=== PATIENT | female | born 1985 | race Two or more races ===

== ENCOUNTER 2021-08-29 13:42 | Emergency (ER) | payer OTHER ==
[~2021-08-29] VITALS: Ht 154.9 cm; Wt 73.5 kg
[2021-08-29] MEDS ORDERED: ZESTRIL5 MG PO (13:50)
[2021-08-29] MEDS ORDERED: IRON325 MG PO (13:51)
[2021-08-29] MEDS ORDERED: DICLOFENAC SODI75 MG PO (16:56)
== END 2021-08-29 16:59 | disposition home or self-care (01) ==
LOC: ER 13:42
DX: M25.572 Pain in left ankle and joints of left foot (principal); I10 Essential (primary) hypertension

== ENCOUNTER 2021-12-24 19:16 | Emergency (ER) | payer OTHER ==
[~2021-12-24] VITALS: Ht 154.9 cm; Wt 72.6 kg
[~2021-12-24 19:16] MED LIST: DICLOFENAC SODI75 MG PO; IRON325 MG PO; ZESTRIL5 MG PO
[2021-12-24] MEDS ORDERED: ORPHENADRINE C100 MG PO (23:57)
== END 2021-12-25 00:38 | disposition home or self-care (01) ==
LOC: ER
DX: R07.1 Chest pain on breathing (principal); R10.13 Epigastric pain; I10 Essential (primary) hypertension

== ENCOUNTER 2022-02-19 15:33 | Emergency (ER) | payer OTHER ==
[~2022-02-19] VITALS: Ht 154.9 cm; Wt 72.6 kg
[~2022-02-19 15:33] MED LIST changes: +ACETAMINOPHEN650 M2 PO; +AZITHROMYCIN500 MG PO; +MEDROLPACK PO; +MUCINEX DM ER1 EACH PO; +ORPHENADRINE C100 MG PO; +ZYRTEC10 M3 PO
== END 2022-02-19 22:47 | disposition home or self-care (01) ==
LOC: ER 15:33
DX: J10.1 Influenza due to other identified influenza virus with other respiratory manifestations (principal); Z20.822 Contact with and (suspected) exposure to COVID-19

== ENCOUNTER 2022-05-27 18:22 | Emergency (ER) | payer OTHER ==
[~2022-05-27] VITALS: Ht 160 cm; Wt 72.6 kg
== END 2022-05-27 20:59 | disposition home or self-care (01) ==
LOC: ER 18:22
DX: R05.8 Other specified cough (principal); R50.9 Fever, unspecified; R53.81 Other malaise

== ENCOUNTER 2022-11-17 16:42 | Emergency (ER) | payer OTHER ==
[~2022-11-17] VITALS: Ht 157.5 cm; Wt 72.6 kg
== END 2022-11-17 21:24 | disposition home or self-care (01) ==
LOC: ER 16:42
PROVIDERS: General Practice
DX: J06.9 Acute upper respiratory infection, unspecified (principal); I10 Essential (primary) hypertension; D64.9 Anemia, unspecified; Z20.822 Contact with and (suspected) exposure to COVID-19

== ENCOUNTER 2022-12-28 13:55 | Emergency (ER) | payer OTHER ==
[~2022-12-28] VITALS: Ht 154.9 cm; Wt 73.5 kg
[2022-12-28] MEDS ORDERED: LISINOPRIL5 MG PO (14:37)
[2022-12-28 17:06] LABS: HEMATOCRIT 39.2 % (36.0-45.00); HEMOGLOBIN 12.8 g/dL (12.0-15.00); MEAN CORPUSCULAR HEMOGLOBIN 28.1 pg (27.00-32.0); MEAN CORPUSCULAR HGB CONC 32.7 g/dl (32.0-36.0); PLATELET COUNT 203 K/uL (150-450); RED BLOOD COUNT 4.57 M/uL (4.00-6.00); RED CELL DISTRIBUTION WIDTH 12.7 % (11.5-14.5)
[2022-12-28 17:39] LABS: ALBUMIN 4.3 gm/dL (3.4-5.0); BILIRUBIN TOTAL 0.34 mg/dL (0.3-1.2); CALCIUM 9.7 mg/dL (8.5-10.1); CREATININE SERUM 0.69 mg/dL (0.55-1.02); GFR 96.82; GLOBULINA 4.2 G/DL (2.4-3.5); POTASSIUM 3.96 mEq/L (3.5-5.1); TOTAL PROTEIN 8.5 gm/dL (6.4-8.2)
[2022-12-28 18:33] LABS: URINE APPEARANCE Turbid; URINE BACTERIA 658.9 uL (0.0-1933); URINE BILIRRUBIN Negative (NEGATIVE); URINE BLOOD Large; URINE COLOR Orange; URINE EPITHELIAL CELLS 10.2 uL (0.0-38.8); URINE GLUCOSE Negative (NEGATIVE); URINE LEUKOCYTE Small; URINE NITRATE Negative; URINE PROTEIN 30 (NEGATIVE); URINE RBC 7482.2 uL (0.0-20.8); URINE WBC 24.7 uL (0.0-23.2)
== END 2022-12-28 18:47 | disposition home or self-care (01) ==
LOC: ER 13:55
PROVIDERS: General Practice
DX: R42 Dizziness and giddiness (principal); Z20.822 Contact with and (suspected) exposure to COVID-19; I10 Essential (primary) hypertension